=== PATIENT | male | born 1955 | race Caucasian/White ===

== ENCOUNTER 2016-04-01 13:16 | Inpatient (IN) | payer OTHER ==
[~2016-04-01] VITALS: Ht 188 cm; Wt 101.0 kg
[~2016-04-01 13:16] MED LIST: ACID REDUCER C1 EACH PO; ADVAIR 250/501 DISK; ADVAIR 250/501 DISK IH; ADVAIR 500/501 DISK IH; ASPIR 8181 M1 PO; ASPIRIN81 M1 PO; AZITHROMYCIN250 MG1 PO; AZITHROMYCIN500 M1 PO; BENZONATATE150 MG PO; BUSPAR5 MG PO; BUSPIRONE HCL5 MG PO; CEFTIN250 MG PO; CEFTIN500 MG PO; COLACE CLEAR50 MG PO; COLACE100 MG PO; COLACE50 MG PO; COMBIVENT INH14.7 GM IH; COMBIVENT RESPIM4 GM IH; CYMBALTA60 MG PO; DAILY VALUE1 EACH PO; DELTASONE20 M1 PO; DOMPERIDONE1 GM; DUONEB 2.5-0.5 M3 ML IH; EFFEXOR XR150 MG PO; EFFEXOR XR75 MG PO; EFFEXOR37.5 MG PO; EFFEXOR75 MG PO; FLOMAX0.4 MG PO; GLUCOPHAGE500 MG PO; GOLD BOND BODY226 GM TP; HYDROCODON-ACE1 EACH; Humibid LA,Mucinex PO; IBUPROFEN600 MG PO; IBUPROFEN800 MG; IBUPROFEN800 MG PO; LEVAQUIN500 MG PO; LEVAQUIN750 MG PO; LEVOFLOXACIN750 MG PO; LEXAPRO20 MG; LEXAPRO20 MG PO; LIPITOR20 MG PO; LOVASTATIN20 MG PO; Lactinex,Floranex PO; Levaquin PO; METAXALONE800 MG PO; METFORMIN HCL500 MG PO; MEVACOR10 MG PO; MONTELUKAST SOD10 MG PO; MOTRIN600 MG PO; MUCINEX600 MG PO; NASONEB NASAL1 EACH MC; NORCO 7.5/321 TABLET PO; POLYETHYLENE GL17 GM PO; PREDNISONE10 MG PO; PREDNISONE2.5 MG PO; PREDNISONE20 MG PO; PREDNISONE5 MG PO; PREDNISONE50 MG PO; PRILOSEC40 MG PO; PROTONIX20 MG PO; PROVENTIL,2.5 MG/3 M IH; SPIRIVA RESPIMAT4 GM IH; SPIRIVA1 INHALATI; SPIRIVA1 INHALATI IH; STOOL SOFTENER100 MG PO; SYMBICORT60 INHALA1 IH; TUMS500 MG PO; Tylenol Regular Stre PO; VITAMIN D PO; VITAMIN D5000 UNIT; WELLBUTRIN SR150 MG; WELLBUTRIN XL150 MG PO; ZITHROMAX Z-PA250 MG PO; ZOFRAN ODT4 MG PO
[2016-04-01 14:19] LABS: HEMATOCRIT 41.5 % (38.0-50.0); MCH 27.4 PG (29.0-34.0); MCHC 33.7 G/DL (30.0-36.0); MCV 81.2 FL (86-99); MEAN PLAT.VOLUME 10.5 uM^3 (9.0-12.4); PLATELET COUNT 182 K/uL (156-360); RBC DIS.WIDTH-CV 14.7 % (11.8-14.6); RBC DIS.WIDTH-SD 42.9 % (39-53); RED BLOOD COUNT 5.11 M/uL (4.00-5.50); WHITE BLOOD COUNT 7.7 K/uL (4.1-10.2)
[2016-04-01 14:30] LABS: CHLORIDE 107 mEq/L (99-109); SODIUM 140 mEq/L (136-147)
[2016-04-01 14:32] LABS: GLUCOSE 147 mg/dL (70-99)
[2016-04-01 14:33] LABS: ANION GAP 11 MEQ/L (2-14)
[2016-04-01 14:34] LABS: TOTAL BILIRUBIN 0.5 mg/dL (0.0-1.0)
[2016-04-01 14:35] LABS: ALKALINE PHOSPHATASE 123 IU/L (3-129)
[2016-04-01 14:36] LABS: GFR ESTIMATE (CALCULATED) > 59 mL/min/
[2016-04-01 14:37] LABS: UREA NITROGEN (BUN) 13 mg/dL (9-23)
[2016-04-01 14:44] LABS: TROP-I INTERPRETATION NEGATIVE; TROPONIN-I < 0.01 ng/mL (0.0-0.30)
[2016-04-01 17:06] LABS: INFLUENZA A VIRAL ANTIGEN NEGATIVE; INFLUENZA B VIRAL ANTIGEN NEGATIVE
[2016-04-01] MEDS ORDERED: PROVENTIL,2.5 MG/3 M IH (18:06)
[2016-04-01] MEDS ORDERED: BUSPAR10 MG PO (18:10)
[2016-04-01] MEDS ORDERED: METFORMIN HCL500 M1 PO (18:13)
[2016-04-01] MEDS ORDERED: TUMS500 MG PO (18:16)
[2016-04-01] MEDS ORDERED: GOLD BOND MEDI283 G1 TP (18:18)
[2016-04-01 20:24] VITALS: BP 137/64
[2016-04-01 22:02] LABS: D-DIMER ELISA 0.22 mg/L FEU (< 0.57)
[2016-04-01 22:37] LABS: POINT-OF-CARE METER ID UU14162513
[2016-04-02 00:11] VITALS: BP 124/67
[2016-04-02 04:05] VITALS: BP 136/73
[2016-04-02 05:22] LABS: METH RESISTANT S AUREUS PCR NEGATIVE (NEGATIVE)
[2016-04-02 05:30] LABS: PROBE CHECK PASS; SPECIMEN PROCESSING CONTROL PASS
[2016-04-02 07:17] VITALS: BP 146/70
[2016-04-02 10:36] LABS: TROP-I INTERPRETATION NEGATIVE; TROPONIN-I < 0.01 ng/mL (0.0-0.30)
[2016-04-02 10:57] VITALS: BP 139/70
[2016-04-02 13:17] LABS: POINT-OF-CARE METER ID UU14162513
[2016-04-02 15:46] LABS: TROP-I INTERPRETATION NEGATIVE; TROPONIN-I 0.01 ng/mL (0.0-0.30)
[2016-04-02 16:30] VITALS: BP 127/60
[2016-04-02 19:27] VITALS: BP 130/96
[2016-04-02 20:57] LABS: POINT-OF-CARE METER ID UU14162513
[2016-04-03] VITALS: BP 128/67
[2016-04-03 04:00] VITALS: BP 123/68
[2016-04-03 07:15] LABS: EOSINOPHIL (%) 0 % (0-5); HEMATOCRIT 40.9 % (38.0-50.0); IMMATURE GRANULOCYTE (%) 0.3 % (0.0-0.7); IMMATURE GRANULOCYTE COUNT 0.1 K/uL; LYMPHOCYTE COUNT 0.8 K/uL (1.0-2.8); MCH 26.6 PG (29.0-34.0); MEAN PLAT.VOLUME 10.8 uM^3 (9.0-12.4); MONOCYTE (%) 3.6 % (3-12); NEUTROPHIL COUNT 24.6 K/uL (1.8-6.4); PLATELET COUNT 219 K/uL (156-360); RBC DIS.WIDTH-CV 14.9 % (11.8-14.6); RBC DIS.WIDTH-SD 45.2 % (39-53); RED BLOOD COUNT 4.93 M/uL (4.00-5.50); WHITE BLOOD COUNT 26.5 K/uL (4.1-10.2)
[2016-04-03 07:22] LABS: ALKALINE PHOSPHATASE 104 IU/L (3-129); ANION GAP 8 MEQ/L (2-14); CHLORIDE 102 MEQ/L (99-109); GFR ESTIMATE (CALCULATED) > 59 mL/min/; GLUCOSE 190 mg/dL (70-99); POTASSIUM 4.3 MEQ/L (3.7-5.4); SAMPLE HEMOLYSIS CHECK 0; SAMPLE ICTERIC CHECK 0; SAMPLE LIPEMIA CHECK 0; SODIUM 137 MEQ/L (136-147); TOTAL BILIRUBIN 0.4 MG/DL (0.0-1.0)
[2016-04-03 07:24] LABS: UREA NITROGEN (BUN) 22 mg/dL (9-23)
[2016-04-03 07:50] VITALS: BP 148/75
[2016-04-03] MEDS ORDERED: SPIRIVA RESPIMAT4 GM IH (09:09)
[2016-04-03] MEDS ORDERED: PREDNISONE10 MG PO (09:11)
[2016-04-03] MEDS ORDERED: LEVAQUIN750 MG PO (09:11)
[2016-04-03 10:54] VITALS: BP 114/59
[2016-04-03 13:42] LABS: POINT-OF-CARE METER ID UU13113831
== END 2016-04-03 14:29 | disposition home or self-care (01) | DRG 192 ==
LOC: EME 13:16 → 5WEST 18:46 → EDOF 18:46 → 5WEST 20:13
PROVIDERS: Emergency Medicine; Hospitalist; Physician Assistant
DX: J44.1 Chronic obstructive pulmonary disease with (acute) exacerbation (principal); J44.0 Chronic obstructive pulmonary disease with (acute) lower respiratory infection; J20.9 Acute bronchitis, unspecified; I25.10 Atherosclerotic heart disease of native coronary artery without angina pectoris; I10 Essential (primary) hypertension; E78.5 Hyperlipidemia, unspecified; E11.9 Type 2 diabetes mellitus without complications; K21.9 Gastro-esophageal reflux disease without esophagitis; G47.33 Obstructive sleep apnea (adult) (pediatric); Z99.81 Dependence on supplemental oxygen; F31.9 Bipolar disorder, unspecified; G89.29 Other chronic pain; M54.9 Dorsalgia, unspecified; F41.9 Anxiety disorder, unspecified; Z87.891 Personal history of nicotine dependence; Z79.84 Long term (current) use of oral hypoglycemic drugs
CPT/HCPCS: 71020; 80053; 82948; 84484; 85025; 85027; 85379; 87502; 87641; 93005; 94010; 94640; 94640 76; 94760; 94799; 99202; 99281; 99284; G0378; J0696; J1815; J1885; J2930; J7030; J7050

== ENCOUNTER 2016-04-23 14:54 | Emergency (ER) | payer OTHER ==
[~2016-04-23] VITALS: Ht 190.5 cm; Wt 98.6 kg
[~2016-04-23 14:54] MED LIST changes: +BUSPAR10 MG PO; +GOLD BOND MEDI283 G1 TP; +METFORMIN HCL500 M1 PO
[2016-04-23 15:21] LABS: HEMATOCRIT 46.9 % (38.0-50.0); MCH 27.4 PG (29.0-34.0); MCHC 32.2 G/DL (30.0-36.0); MCV 85.1 FL (86-99); MEAN PLAT.VOLUME 9.3 uM^3 (9.0-12.4); PLATELET COUNT 220 K/uL (156-360); RBC DIS.WIDTH-CV 14.9 % (11.8-14.6); RBC DIS.WIDTH-SD 46.4 % (39-53); RED BLOOD COUNT 5.51 M/uL (4.00-5.50)
[2016-04-23 15:24] LABS: WHITE BLOOD COUNT 12.7 K/uL (4.1-10.2)
[2016-04-23 15:32] LABS: CHLORIDE 103 mEq/L (99-109); POTASSIUM 4.1 mEq/L (3.7-5.4); SODIUM 140 mEq/L (136-147)
[2016-04-23 15:33] LABS: GLUCOSE 190 mg/dL (70-99)
[2016-04-23 15:35] LABS: ANION GAP 11 MEQ/L (2-14)
[2016-04-23 15:37] LABS: GFR ESTIMATE (CALCULATED) > 59 mL/min/
[2016-04-23 15:38] LABS: UREA NITROGEN (BUN) 16 mg/dL (9-23)
[2016-04-23 15:45] LABS: TROP-I INTERPRETATION NEGATIVE; TROPONIN-I < 0.01 ng/mL (0.0-0.30)
[2016-04-23] MEDS ORDERED: ALBUTEROL2.5 MG/3 M IH (19:00)
[2016-04-23] MEDS ORDERED: ZITHROMAX Z-PA250 MG PO (19:00)
[2016-04-23] MEDS ORDERED: PREDNISONE20 MG PO (19:00)
[2016-04-23 19:22] VITALS: BP 141/82
== END 2016-04-23 19:39 | disposition home or self-care (01) ==
LOC: EME 14:54
DX: J44.1 Chronic obstructive pulmonary disease with (acute) exacerbation (principal); E11.9 Type 2 diabetes mellitus without complications; E78.5 Hyperlipidemia, unspecified; I25.2 Old myocardial infarction; K21.9 Gastro-esophageal reflux disease without esophagitis; F31.9 Bipolar disorder, unspecified; Z87.442 Personal history of urinary calculi; Z87.891 Personal history of nicotine dependence
CPT/HCPCS: 71020; 80048; 84484; 85027; 93005; 94640; 99281; 99285; J7512

== ENCOUNTER 2016-12-03 09:41 | Emergency (ER) | payer OTHER ==
[~2016-12-03] VITALS: Ht 190.5 cm; Wt 101.2 kg
[~2016-12-03 09:41] MED LIST changes: +ALBUTEROL2.5 MG/3 M IH
[2016-12-03 10:25] LABS: HEMATOCRIT 42.9 % (38.0-50.0); MCH 26.2 PG (29.0-34.0); MCHC 31.7 G/DL (30.0-36.0); MCV 82.7 FL (86-99); MEAN PLAT.VOLUME 9.9 uM^3 (9.0-12.4); PLATELET COUNT 226 K/uL (156-360); RBC DIS.WIDTH-CV 14.6 % (11.8-14.6); RBC DIS.WIDTH-SD 43.8 % (39-53); RED BLOOD COUNT 5.19 M/uL (4.00-5.50); WHITE BLOOD COUNT 8.1 K/uL (4.1-10.2)
[2016-12-03 10:37] LABS: CHLORIDE 105 mEq/L (99-109); SODIUM 141 mEq/L (136-147)
[2016-12-03 10:39] LABS: GLUCOSE 122 mg/dL (70-99)
[2016-12-03 10:41] LABS: ANION GAP 10 MEQ/L (2-14); TOTAL BILIRUBIN 0.5 mg/dL (0.0-1.0)
[2016-12-03 10:43] LABS: ALKALINE PHOSPHATASE 126 IU/L (3-129); GFR ESTIMATE (CALCULATED) > 59 mL/min/
[2016-12-03 10:44] LABS: UREA NITROGEN (BUN) 15 mg/dL (9-23)
[2016-12-03 10:46] LABS: LIPASE 19 U/L (1.0-51.0)
[2016-12-03 11:04] LABS: ADD MIUA? NO; BILIRUBIN NEGATIVE; BLOOD NEGATIVE; COLOR YELLOW ((YELLOW)); GLUCOSE (STRIP) NEGATIVE; KETONES NEGATIVE; LEUKOCYTES NEGATIVE; NITRITE NEGATIVE; PROTEIN (STRIP) 30; SPECIFIC GRAVITY 1.025 (1.000-1.030); UCUL ADDED? NO; UROBILINOGEN 0.2 MG/DL (0.2-1.0)
[2016-12-03] MEDS ORDERED: BENTYL20 MG PO (12:45)
[2016-12-03] MEDS ORDERED: ZOFRAN ODT4 MG PO (12:46)
[2016-12-03 13:30] VITALS: BP 134/78
== END 2016-12-03 13:30 | disposition home or self-care (01) ==
LOC: EME 09:41
DX: R19.7 Diarrhea, unspecified (principal); R10.9 Unspecified abdominal pain; K21.9 Gastro-esophageal reflux disease without esophagitis; J44.9 Chronic obstructive pulmonary disease, unspecified; E11.9 Type 2 diabetes mellitus without complications; E78.5 Hyperlipidemia, unspecified; F41.9 Anxiety disorder, unspecified; F32.9 Major depressive disorder, single episode, unspecified; F31.9 Bipolar disorder, unspecified; I25.2 Old myocardial infarction; Z87.442 Personal history of urinary calculi; Z90.3 Acquired absence of stomach [part of]; Z79.84 Long term (current) use of oral hypoglycemic drugs; Z79.82 Long term (current) use of aspirin; Z87.891 Personal history of nicotine dependence; Z88.8 Allergy status to other drugs, medicaments and biological substances
CPT/HCPCS: 71020; 74177; 80053; 81003; 83690; 85027; 93005; 99281; 99284; J3010; J7030

== ENCOUNTER 2017-01-08 12:05 | Inpatient (IN) | payer OTHER ==
[~2017-01-08] VITALS: Ht 190.5 cm; Wt 101.3 kg
[~2017-01-08 12:05] MED LIST changes: +BENTYL20 MG PO; +LOVASTATIN40 MG PO
[2017-01-08 12:57] LABS: HEMATOCRIT 42.3 % (38.0-50.0); MCHC 32.6 G/DL (30.0-36.0); MCV 82.6 FL (86-99); MEAN PLAT.VOLUME 9.9 uM^3 (9.0-12.4); PLATELET COUNT 213 K/uL (156-360); RBC DIS.WIDTH-CV 14.7 % (11.8-14.6); RBC DIS.WIDTH-SD 44.4 % (39-53); RED BLOOD COUNT 5.12 M/uL (4.00-5.50); WHITE BLOOD COUNT 7.4 K/uL (4.1-10.2)
[2017-01-08 13:11] LABS: CHLORIDE 107 mEq/L (99-109); POTASSIUM 4.2 mEq/L (3.7-5.4); SODIUM 140 mEq/L (136-147)
[2017-01-08 13:13] LABS: GLUCOSE 106 mg/dL (70-99)
[2017-01-08 13:14] LABS: ANION GAP 7 MEQ/L (2-14)
[2017-01-08 13:15] LABS: TOTAL BILIRUBIN 0.3 mg/dL (0.0-1.0)
[2017-01-08 13:16] LABS: ALKALINE PHOSPHATASE 119 IU/L (3-129)
[2017-01-08 13:17] LABS: GFR ESTIMATE (CALCULATED) > 59 mL/min/
[2017-01-08 13:18] LABS: UREA NITROGEN (BUN) 13 mg/dL (9-23)
[2017-01-08 13:19] LABS: TROP-I INTERPRETATION NEGATIVE; TROPONIN-I < 0.01 ng/mL (0.0-0.30)
[2017-01-08 22:19] VITALS: BP 125/75
[2017-01-08] MEDS ORDERED: TRAZODONE HCL50 MG PO (23:03)
[2017-01-08] MEDS ORDERED: WELLBUTRIN XL300 MG PO (23:04)
[2017-01-08] MEDS ORDERED: JANUMET 50/51 TABLET PO (23:05)
[2017-01-08] MEDS ORDERED: PREDNISONE10 MG PO (23:15)
[2017-01-09] VITALS (7 sets, daily range): BP systolic 111–137; BP diastolic 59–75
[2017-01-09 07:08] LABS: HEMATOCRIT 38.6 % (38.0-50.0); MCH 27.3 PG (29.0-34.0); MCHC 32.9 G/DL (30.0-36.0); MCV 82.8 FL (86-99); MEAN PLAT.VOLUME 10.1 uM^3 (9.0-12.4); PLATELET COUNT 195 K/uL (156-360); RBC DIS.WIDTH-CV 15.2 % (11.8-14.6); RBC DIS.WIDTH-SD 46.3 % (39-53); RED BLOOD COUNT 4.66 M/uL (4.00-5.50); WHITE BLOOD COUNT 11.3 K/uL (4.1-10.2)
[2017-01-09 07:28] LABS: ANION GAP 10 MEQ/L (2-14); CHLORIDE 106 MEQ/L (99-109); GFR ESTIMATE (CALCULATED) > 59 mL/min/; POTASSIUM 4.8 MEQ/L (3.7-5.4); SAMPLE HEMOLYSIS CHECK 0; SAMPLE ICTERIC CHECK 0; SAMPLE LIPEMIA CHECK 0; SODIUM 139 MEQ/L (136-147); UREA NITROGEN (BUN) 19 mg/dL (9-23)
[2017-01-09 07:31] LABS: GLUCOSE 271 mg/dL (70-99)
[2017-01-09 07:38] LABS: POINT-OF-CARE METER ID UU13113717
[2017-01-09 12:12] LABS: POINT-OF-CARE METER ID UU14174225
[2017-01-09 17:08] LABS: POINT-OF-CARE METER ID UU14174225
[2017-01-09 21:50] LABS: POINT-OF-CARE METER ID UU14174225
[2017-01-10 03:17] VITALS: BP 125/63
[2017-01-10 06:56] LABS: EOSINOPHIL (%) 0 % (0-5); IMMATURE GRANULOCYTE (%) 0.9 % (0.0-0.7); IMMATURE GRANULOCYTE COUNT 0.2 K/uL; INSTRUMENT ABS NEUTROPHIL CT 21.7 K/uL; LYMPHOCYTE COUNT 0.7 K/uL (1.0-2.8); MCH 27.3 PG (29.0-34.0); MCHC 32.6 G/DL (30.0-36.0); MCV 83.7 FL (86-99); MEAN PLAT.VOLUME 10.1 uM^3 (9.0-12.4); MONOCYTE (%) 1.8 % (3-12); MONOCYTE COUNT 0.4 K/uL (0-0.8); NEUTROPHIL COUNT 21.7 K/uL (1.8-6.4); PLATELET COUNT 225 K/uL (156-360); RBC DIS.WIDTH-CV 15.5 % (11.8-14.6); RBC DIS.WIDTH-SD 47.6 % (39-53); RED BLOOD COUNT 4.54 M/uL (4.00-5.50); WHITE BLOOD COUNT 23.1 K/uL (4.1-10.2)
[2017-01-10 07:48] LABS: ANION GAP 10 MEQ/L (2-14); CHLORIDE 105 MEQ/L (99-109); GFR ESTIMATE (CALCULATED) > 59 mL/min/; GLUCOSE 225 mg/dL (70-99); POTASSIUM 4.7 MEQ/L (3.7-5.4); SAMPLE HEMOLYSIS CHECK 0; SAMPLE ICTERIC CHECK 0; SAMPLE LIPEMIA CHECK 0; SODIUM 139 MEQ/L (136-147); UREA NITROGEN (BUN) 26 mg/dL (9-23)
[2017-01-10 08:00] VITALS: BP 125/69
[2017-01-10 08:40] LABS: POINT-OF-CARE METER ID UU13113717
[2017-01-10] MEDS ORDERED: AMOX TR-K CLV1 EAC4 PO (11:22)
[2017-01-10] MEDS ORDERED: MUCINEX600 MG PO (11:22)
[2017-01-10] MEDS ORDERED: MEDROL DOSEPAK4 MG PO (11:23)
[2017-01-10 12:00] VITALS: BP 130/67
[2017-01-10 12:53] LABS: POINT-OF-CARE METER ID UU13113717
== END 2017-01-10 14:34 | disposition home or self-care (01) | DRG 190 ==
LOC: EME 12:05 → EDOF 20:59 → ENRESERV 21:01 → 5SOUTH 22:12
PROVIDERS: Hospitalist; Internal Medicine
DX: J44.1 Chronic obstructive pulmonary disease with (acute) exacerbation (principal); J96.21 Acute and chronic respiratory failure with hypoxia; J44.0 Chronic obstructive pulmonary disease with (acute) lower respiratory infection; J20.9 Acute bronchitis, unspecified; G47.33 Obstructive sleep apnea (adult) (pediatric); E11.9 Type 2 diabetes mellitus without complications; E78.5 Hyperlipidemia, unspecified; F31.9 Bipolar disorder, unspecified; I10 Essential (primary) hypertension; I25.10 Atherosclerotic heart disease of native coronary artery without angina pectoris; K21.9 Gastro-esophageal reflux disease without esophagitis; G89.29 Other chronic pain; M54.9 Dorsalgia, unspecified; F41.9 Anxiety disorder, unspecified; Z87.11 Personal history of peptic ulcer disease; Z87.891 Personal history of nicotine dependence; Z90.3 Acquired absence of stomach [part of]; I25.2 Old myocardial infarction; Z99.81 Dependence on supplemental oxygen; Z79.82 Long term (current) use of aspirin; Z88.5 Allergy status to narcotic agent
CPT/HCPCS: 71020; 71260; 80048; 80053; 82948; 84484; 85025; 85027; 93005; 94640; 94640 76; 94644; 94760; 94799; 99202; 99281; 99285; J1100; J1815; J2405; J2930; J7040

== ENCOUNTER 2017-03-29 08:35 | Emergency (ER) | payer OTHER ==
[~2017-03-29] VITALS: Ht 188 cm; Wt 107.5 kg
[~2017-03-29 08:35] MED LIST changes: +AMOX TR-K CLV1 EAC4 PO; +JANUMET 50/51 TABLET PO; +MEDROL DOSEPAK4 MG PO; +TRAZODONE HCL50 MG PO; +WELLBUTRIN XL300 MG PO
[2017-03-29] MEDS ORDERED: LIDODERM 5% P1 PATCH TD (11:22)
[2017-03-29] MEDS ORDERED: VALIUM5 MG PO (11:22)
[2017-03-29] MEDS ORDERED: MOTRIN800 MG PO (11:22)
[2017-03-29 11:32] VITALS: BP 115/70
== END 2017-03-29 11:33 | disposition home or self-care (01) ==
LOC: EME 08:35
DX: S39.012A Strain of muscle, fascia and tendon of lower back, initial encounter (principal); M54.40 Lumbago with sciatica, unspecified side; X50.9XXA Other and unspecified overexertion or strenuous movements or postures, initial encounter; Y93.89 Activity, other specified; J44.9 Chronic obstructive pulmonary disease, unspecified; E11.9 Type 2 diabetes mellitus without complications; G89.29 Other chronic pain; Z87.891 Personal history of nicotine dependence; Z88.5 Allergy status to narcotic agent
CPT/HCPCS: 72100; 99281; 99283; J3010

== ENCOUNTER 2017-04-20 21:47 | Emergency (ER) | payer OTHER ==
[~2017-04-20] VITALS: Ht 188 cm; Wt 107.5 kg
[~2017-04-20 21:47] MED LIST changes: +LIDODERM 5% P1 PATCH TD; +MOTRIN800 MG PO; +VALIUM5 MG PO
[2017-04-21] MEDS ORDERED: VALIUM5 MG PO (00:33)
[2017-04-21] MEDS ORDERED: LIDODERM 5% P1 PATCH TD (00:33)
[2017-04-21] MEDS ORDERED: NAPROXEN500 MG PO (00:33)
[2017-04-21 00:48] VITALS: BP 117/72
== END 2017-04-21 00:51 | disposition home or self-care (01) ==
LOC: EME 21:47
DX: S39.012A Strain of muscle, fascia and tendon of lower back, initial encounter (principal); M79.604 Pain in right leg; X50.1XXA Overexertion from prolonged static or awkward postures, initial encounter; R11.10 Vomiting, unspecified; G89.29 Other chronic pain; Z79.82 Long term (current) use of aspirin; Z79.84 Long term (current) use of oral hypoglycemic drugs
CPT/HCPCS: 99281; 99285; J1100; J1885

== ENCOUNTER 2017-04-26 12:33 | Inpatient (IN) | payer OTHER ==
[~2017-04-26] VITALS: Ht 188 cm; Wt 103.6 kg
[~2017-04-26 12:33] MED LIST changes: +NAPROXEN500 MG PO
[2017-04-26 13:26] LABS: MCH 27.6 PG (29.0-34.0); MCHC 34.1 G/DL (30.0-36.0); PLATELET COUNT 240 K/uL (156-360); RBC DIS.WIDTH-CV 13.3 % (11.8-14.6); RBC DIS.WIDTH-SD 38.9 % (39-53); RED BLOOD COUNT 5.43 M/uL (4.00-5.50); WHITE BLOOD COUNT 12.9 K/uL (4.1-10.2)
[2017-04-26 13:36] LABS: CHLORIDE 100 mEq/L (99-109)
[2017-04-26 13:37] LABS: POTASSIUM 4.3 mEq/L (3.7-5.4); SODIUM 135 mEq/L (136-147)
[2017-04-26 13:38] LABS: GLUCOSE 108 mg/dL (70-99)
[2017-04-26 13:42] LABS: CREATININE 1.2 mg/dL (0.6-1.3); GFR ESTIMATE (CALCULATED) > 59 mL/min/ (58.99-99999)
[2017-04-26 13:43] LABS: UREA NITROGEN (BUN) 30 mg/dL (9-23)
[2017-04-26 13:48] LABS: TROP-I INTERPRETATION NEGATIVE; TROPONIN-I < 0.01 ng/mL (0.0-0.30)
[2017-04-26] MEDS ORDERED: ZITHROMAX250 MG PO (16:08)
[2017-04-26] MEDS ORDERED: PREDNISONE20 MG PO (16:08)
[2017-04-26] MEDS ORDERED: PROVENTIL,2.5 MG/3 M IH (18:38)
[2017-04-26] MEDS ORDERED: REMERON30 M2 PO (18:42)
[2017-04-26] MEDS ORDERED: BREO ELLIPTA I1 EACH IH (18:42)
[2017-04-26] MEDS ORDERED: DELTASONE20 M1 PO ×2 (18:43→18:44)
[2017-04-26] MEDS ORDERED: MUCINEX DM ER1 EACH PO (18:43)
[2017-04-26] MEDS ORDERED: LIDODERM 5% P1 PATCH TD (18:46)
[2017-04-26] MEDS ORDERED: MOTRIN800 MG PO (18:46)
[2017-04-26] MEDS ORDERED: DOCUSATE SODIU250 MG PO (18:47)
[2017-04-26] MEDS ORDERED: JANUMET XR 50-1 EACH PO (18:47)
[2017-04-26 22:05] VITALS: BP 107/59
[2017-04-27] VITALS (7 sets, daily range): BP systolic 109–136; BP diastolic 59–76
[2017-04-27 06:01] LABS: HEMATOCRIT 39.1 % (38.0-50.0); HEMOGLOBIN 13.2 G/DL (12.5-16.6); MCH 27.8 PG (29.0-34.0); MCHC 33.8 G/DL (30.0-36.0); MCV 82.3 FL (86-99); PLATELET COUNT 191 K/uL (156-360); RBC DIS.WIDTH-CV 13.4 % (11.8-14.6); RBC DIS.WIDTH-SD 40.4 % (39-53); RED BLOOD COUNT 4.75 M/uL (4.00-5.50); WHITE BLOOD COUNT 5.2 K/uL (4.1-10.2)
[2017-04-27 06:15] LABS: CHLORIDE 101 MEQ/L (99-109); CREATININE 1.2 MG/DL (0.6-1.3); GFR ESTIMATE (CALCULATED) > 59 mL/min/ (58.99-99999); SODIUM 135 MEQ/L (136-147); UREA NITROGEN (BUN) 28 mg/dL (9-23)
[2017-04-27 06:26] LABS: GLUCOSE 292 mg/dL (70-99)
[2017-04-28 04:03] VITALS: BP 129/79
[2017-04-28] MEDS ORDERED: WELLBUTRIN XL300 MG PO (06:32)
[2017-04-28 07:24] VITALS: BP 136/75
[2017-04-28 11:17] VITALS: BP 112/64
[2017-04-28 16:26] VITALS: BP 133/76
[2017-04-28 23:45] VITALS: BP 134/75
[2017-04-29 05:45] VITALS: BP 127/65
[2017-04-29 06:16] LABS: HEMATOCRIT 38.6 % (38.0-50.0); HEMOGLOBIN 12.7 G/DL (12.5-16.6); MCHC 32.9 G/DL (30.0-36.0); MCV 82.1 FL (86-99); PLATELET COUNT 224 K/uL (156-360); RBC DIS.WIDTH-CV 13.3 % (11.8-14.6); RBC DIS.WIDTH-SD 40.1 % (39-53); WHITE BLOOD COUNT 14.4 K/uL (4.1-10.2)
[2017-04-29 06:36] LABS: CHLORIDE 101 MEQ/L (99-109); GFR ESTIMATE (CALCULATED) > 59 mL/min/ (58.99-99999); GLUCOSE 195 mg/dL (70-99); POTASSIUM 4.7 MEQ/L (3.7-5.4); SODIUM 134 MEQ/L (136-147); UREA NITROGEN (BUN) 28 mg/dL (9-23)
[2017-04-29 09:27] VITALS: BP 120/68
[2017-04-29 16:35] VITALS: BP 129/77
[2017-04-30 00:13] VITALS: BP 149/70
[2017-04-30 06:52] LABS: HEMATOCRIT 39.7 % (38.0-50.0); HEMOGLOBIN 12.9 G/DL (12.5-16.6); MCH 26.5 PG (29.0-34.0); MCHC 32.5 G/DL (30.0-36.0); MCV 81.7 FL (86-99); PLATELET COUNT 239 K/uL (156-360); RBC DIS.WIDTH-CV 13.3 % (11.8-14.6); RED BLOOD COUNT 4.86 M/uL (4.00-5.50); WHITE BLOOD COUNT 13.7 K/uL (4.1-10.2)
[2017-04-30 07:00] VITALS: BP 140/74
[2017-04-30] MEDS ORDERED: PREDNISONE10 MG PO (10:55)
[2017-04-30] MEDS ORDERED: CEFDINIR300 MG PO (10:56)
[2017-04-30] MEDS ORDERED: SPIRIVA1 INHALATI IH (10:56)
[2017-04-30] MEDS ORDERED: METFORMIN HCL500 MG PO (11:03)
[2017-04-30 11:24] VITALS: BP 129/73
[2017-04-30] MEDS ORDERED: SPIRIVA RESPIMAT4 GM IH (12:21)
== END 2017-04-30 12:48 | disposition home or self-care (01) | DRG 190 ==
LOC: EME 12:33 → 5EAST 18:04 → EDOF 18:04 → ENRESERV 18:08 → 5EAST 21:39 → ENPENDDIS 04-30 → 5EAST 04-30 12:48
PROVIDERS: Hospitalist; Internal Medicine
DX: J44.1 Chronic obstructive pulmonary disease with (acute) exacerbation (principal); J96.21 Acute and chronic respiratory failure with hypoxia; Z99.81 Dependence on supplemental oxygen; J44.0 Chronic obstructive pulmonary disease with (acute) lower respiratory infection; J20.9 Acute bronchitis, unspecified; I10 Essential (primary) hypertension; E86.0 Dehydration; E11.9 Type 2 diabetes mellitus without complications; E78.5 Hyperlipidemia, unspecified; G47.33 Obstructive sleep apnea (adult) (pediatric); I25.10 Atherosclerotic heart disease of native coronary artery without angina pectoris; F31.9 Bipolar disorder, unspecified; F41.9 Anxiety disorder, unspecified; G89.29 Other chronic pain; M54.9 Dorsalgia, unspecified; I25.2 Old myocardial infarction; Z91.19 Patient's noncompliance with other medical treatment and regimen; Z87.891 Personal history of nicotine dependence; Z87.442 Personal history of urinary calculi; Z87.11 Personal history of peptic ulcer disease; Z90.3 Acquired absence of stomach [part of]; Z79.82 Long term (current) use of aspirin; Z79.84 Long term (current) use of oral hypoglycemic drugs
CPT/HCPCS: 71046; 80048; 82948; 84484; 85027; 87070; 87205; 94640; 94640 76; 94644; 94645; 94760; 94799; 99202; 99281; 99285; J0696; J1650; J1815; J2930; J3475; J7030; J7040; J7512

== ENCOUNTER 2017-06-20 08:32 | Emergency (ER) | payer OTHER ==
[~2017-06-20] VITALS: Ht 188 cm; Wt 98.6 kg
[~2017-06-20 08:32] MED LIST changes: +BREO ELLIPTA I1 EACH IH; +CEFDINIR300 MG PO; +DOCUSATE SODIU250 MG PO; +JANUMET XR 50-1 EACH PO; +MUCINEX DM ER1 EACH PO; +REMERON30 M2 PO; +ZITHROMAX250 MG PO
[2017-06-20 09:20] LABS: HEMATOCRIT 43.1 % (38.0-50.0); HEMOGLOBIN 14.2 G/DL (12.5-16.6); MCH 26.8 PG (29.0-34.0); MCHC 32.9 G/DL (30.0-36.0); MCV 81.3 FL (86-99); PLATELET COUNT 209 K/uL (156-360); RBC DIS.WIDTH-CV 13.9 % (11.8-14.6); WHITE BLOOD COUNT 6.6 K/uL (4.1-10.2)
[2017-06-20 09:30] LABS: CHLORIDE 106 mEq/L (99-109); POTASSIUM 4.1 mEq/L (3.7-5.4); SODIUM 138 mEq/L (136-147)
[2017-06-20 09:31] LABS: GLUCOSE 119 mg/dL (70-99)
[2017-06-20 09:35] LABS: CREATININE 1.2 mg/dL (0.6-1.3); GFR ESTIMATE (CALCULATED) > 59 mL/min/ (58.99-99999)
[2017-06-20 09:36] LABS: UREA NITROGEN (BUN) 11 mg/dL (9-23)
[2017-06-20 09:43] LABS: TROP-I INTERPRETATION NEGATIVE; TROPONIN-I < 0.01 ng/mL (0.0-0.30)
[2017-06-20 14:18] VITALS: BP 115/71
== END 2017-06-20 14:20 | disposition home or self-care (01) ==
LOC: EME 08:32
PROVIDERS: Emergency Medicine Emergency Medical Services
DX: R07.89 Other chest pain (principal); J44.1 Chronic obstructive pulmonary disease with (acute) exacerbation; F41.9 Anxiety disorder, unspecified; I45.10 Unspecified right bundle-branch block; I44.4 Left anterior fascicular block; R94.31 Abnormal electrocardiogram [ECG] [EKG]; E11.9 Type 2 diabetes mellitus without complications; Z79.84 Long term (current) use of oral hypoglycemic drugs; E78.5 Hyperlipidemia, unspecified; K21.9 Gastro-esophageal reflux disease without esophagitis; I25.2 Old myocardial infarction; F32.9 Major depressive disorder, single episode, unspecified; Z99.81 Dependence on supplemental oxygen; Z79.82 Long term (current) use of aspirin; Z87.442 Personal history of urinary calculi; Z88.5 Allergy status to narcotic agent
CPT/HCPCS: 71045; 80048; 84484; 85027; 93005; 94644; 99281; 99284; J7512